=== PATIENT | female | born 1995 ===

== ENCOUNTER 2023-10-11 08:43 | Emergency (ER) | payer MEDICAID, SELFPAY ==
[2023-10-11 08:47] VITALS: BP 147/97; PULSE 79; RESP 18; TEMP 36.1; O2SAT 99; BMI 36.7
--- NOTE | 2023-10-11 09:14 | ED_ITS ---
HPI - URI/Sore Throat General Chief Complaint: Upper Respiratory Symptoms Stated Complaint: Sore throat Time Seen by Provider: 10/11/23 09:02 Source: patient Mode of arrival: ambulatory Limitations: no limitations History of Present Illness ED Provider: Destiny Lopez PA-C HPI Narrative: 28 yo female with no medical history presents to the ER for evaluation of sore throat and headache for the last 3 days. Patient states the pain is worse on the right side of her throat and radiates into her neck. She reports some pain with swallowing. She has a mild headache. No fevers or chills. No cough, abdominal pain, nausea, vomiting, diarrhea. No known sick contacts. She feels like her tonsils are swollen. She denies any dental pain. No tongue swelling. MD elicited complaint: sore throat Onset (ago): day(s) (3) Consistency: constant Able to tolerate fluids by mouth: Yes Exacerbating factors: other (laying on the right side, swallowing) Relieving factors: nothing Associated symptoms: headache Treatments prior to arrival: none Related Data Allergies Allergy/AdvReac Type Severity Reaction Status Date / Time No Known Allergies Allergy Verified 10/11/23 08:51 Review of Systems Review of Systems: Yes all other systems are reviewed and are negative [facility] Social History Social History Advance Directives: No Do you have a plan to hurt others: No Plan Physical Exam Vital Signs: Vital Signs: Last Vital Signs Temp 97.0 F 10/11/23 08:47 Pulse 79 10/11/23 08:47 Resp 18 10/11/23 08:47 BP 147/97 H 10/11/23 08:47 Pulse Ox 99 10/11/23 08:47 O2 Del Method Room Air 10/11/23 08:47 BMI result Body Mass Index 36.7 Appearance: Alert. Oriented X3. No acute distress. Head: normocephalic, atraumatic. Eyes: Pupils equal, round and reactive to light. ENT: Pharynx with mild posterior pharyngeal erythema, generalized. Tongue is normal to inspection. No sublingual edema. No tonsillar swelling or exudate. Uvula is midline. Handling secretions normally. Normal tympanic membranes bilaterally. Teeth are nontender without any associated gingival swelling or fluctuance Neck: Normal inspection. Neck supple. No neck swelling. Right-sided cervical lymphadenopathy appreciated. CVS: Normal heart rate and rhythm. Pulses normal. Respiratory: No respiratory distress. Breath sounds normal. Skin: Skin warm and dry. Normal skin color. Normal skin turgor. No rashes. Extremities: No lower extremity edema. No joint swelling. Neuro/psych: Oriented X 3. Grossly normal, nonfocal Normal speech and cognition. Medical Decision Making Medical Decision Making [facility] Narrative: 28-year-old otherwise healthy female presents to the ER for evaluation of 3 days of sore throat and headache. She feels like her tonsils are swollen. Pain is worse on the right side. On physical exam she is not have any evidence of a peritonsillar abscess or retropharyngeal abscess. She has no tonsillar swelling or exudate. Her voice is normal and she is handling secretions normally. Her vital signs are stable. Strep test is negative. COVID, flu, RSV is negative. Patient's symptoms are most likely due to acute viral pharyngitis. We discussed supportive care and symptomatic management. Stable for discharge home. Differential Diagnosis Differential Diagnoses: The differential diagnosis associated with the presentation includes strep, covid, flu, rsv, other viral syndrome, bronchitis, pneumonia, no evidence of peritonsillar abcsess or retropharyngeal abscess Lab Data [facility] Lab Attestation statement: I reviewed the patient's lab results. Negative viral studies, negative strep Labs: Lab Results 10/11/23 Range/Units 09:00 Influenza Type A (PCR) NEGATIVE (Negative) Influenza Type B (PCR) NEGATIVE (Negative) RSV RNA Qual (PCR) NEGATIVE (Negative) SARS-CoV-2 RNA (RT-PCR) NEGATIVE (Negative) S. pyogenes GrpA RONN Negative (Negative) Tests considered The following testing was considered but not selected: Considered Monospot however no other areas of significant lymphadenopathy, low clinical suspicion for mono Prescription Management I considered prescription management with: Pain Medication and Antibiotic Critical Care Time Critical Care Time Critical Care Time: No Discharge Plan Discharge Clinical Impression: Viral pharyngitis Patient Disposition: Home, Self-Care Instructions: Pharyngitis (ED) Additional Instructions: You tested negative for COVID, flu, RSV, strep throat. Your symptoms most likely due to a viral infection. Recommend warm salt water gargles 3 times per day. Recommend [id number] Chloraseptic spray or Cepacol lozenges as needed for sore throat. Take Motrin Tylenol as needed for pain. Rest and drink plenty of fluids. If you develop new or worsening symptoms call 911 or come back to the ER for further evaluation. Print Language: Malay
[2023-10-11 09:17] LABS: IDNOW Serial# 58CA691E; Strep A Nucleic Acid Negative (Negative)
[2023-10-11 09:43] LABS: Influenza A PCR NEGATIVE (Negative); Influenza B PCR NEGATIVE (Negative); Resp Syncy Virus RNA Qual PCR NEGATIVE (Negative); SARS COV2 PCR INHOUSE NEGATIVE (Negative)
[2023-10-11 09:57] VITALS: BP 149/101; PULSE 74; RESP 16; TEMP 36.8; O2SAT 97
[2023-10-11] MEDS: Lidocaine HCl Viscous 2 % 15 ML SOLUTION MUCOUS MEM (10:29)
[2023-10-11] MEDS: Ibuprofen 600 MG TABLET PO (10:29)
[2023-10-11 10:34] VITALS: BP 142/90; PULSE 68; RESP 16; TEMP 36.8; O2SAT 97
== END 2023-10-11 10:36 | disposition home or self-care (01) ==
PROVIDERS: Emergency Provider Emergency Medicine Emergency Medical Services
DX: J02.8 Acute pharyngitis due to other specified organisms (principal); R51.9 Headache, unspecified; Z03.818 Encounter for observation for suspected exposure to other biological agents ruled out
CPT/HCPCS: 0241U; 87651; 99283